=== PATIENT | female | born 1940 | race Caucasian/White ===

== ENCOUNTER 2016-05-16 22:38 | Inpatient (IN) | payer MEDICARE, BC ==
[~2016-05-16] VITALS: Ht 167.6 cm; Wt 84.8 kg
[~2016-05-16 22:38] MED LIST: ASPI-1100 PO; ATOR80TA PO; CARV3.122 PO; ESTR0.9T2 PO; EZET10TA PO; LEVO100C2 PO; LORA2TAB95 PO; METH10TA PO; PRAS10TA5 PO
[2016-05-16] MEDS ORDERED: IV SET PRIMARY 1 EA INFUS.SET MC ONE (22:51)
[2016-05-16] MEDS ORDERED: IV NS 0.9% 1,000 ML ONE (22:51)
[2016-05-16] MEDS ORDERED: IV NS 0.9% 1,000 ML BAG IV ONE (23:00)
[2016-05-16 23:25] LABS: BASOPHILS % (AUTO) 0.2 % (0.0-2.0); EOSINOPHILS # (AUTO) 0.2 /CMM (0.0-0.7); EOSINOPHILS % (AUTO) 3.4 % (0.0-6.0); HEMATOCRIT 43 % (33-45); HEMOGLOBIN 13.7 g/dL (11.5-14.8); LYMPHOCYTES # (AUTO) 0.3 /CMM (0.8-4.8); LYMPHOCYTES % (AUTO) 6.3 % (20.0-44.0); MEAN CORPUSCULAR HEMOGLOBIN 28 PG (26.0-33.0); MEAN CORPUSCULAR HGB CONC 32 g/dl (31.0-36.0); MEAN CORPUSCULAR VOLUME 86 fL (82-100); MONOCYTES # (AUTO) 0.4 /CMM (0.1-1.30); MONOCYTES % (AUTO) 6.8 % (2.0-12.0); NEUTROPHILS # (AUTO) 4.4 /CMM (1.8-8.9); NEUTROPHILS % (AUTO) 83.3 % (43.0-81.0); PLATELET COUNT (AUTO) 218 /CMM (150-450); RDW COEFFICIENT OF VARIATION 14.6 (11.5-15.0); RED BLOOD CELL COUNT(AUTO) 4.97 MIL/uL (4.0-5.2); WHITE BLOOD COUNT (AUTO) 5.3 K/uL (4.3-11.0)
[2016-05-16 23:46] LABS: APPEARANCE,URINE CLEAR (CLEAR); BILIRUBIN,URINE NEGATIVE (NEGATIVE); BLOOD, URINE TRACE-INTA Ery/uL (NEGATIVE); COLOR,URINE YELLOW (YELLOW); KETONES,URINE NEGATIVE (NEGATIVE); LEUKOCYTE ESTERASE ,URINE NEGATIVE (NEGATIVE); NITRITE, URINE NEGATIVE (NEGATIVE); PH,URINE 7.5 (5.0-8.0); PROTEIN,URINE NEGATIVE (NEGATIVE); UGLUCOSE NEGATIVE (NEGATIVE); UROBILINOGEN,URINE 0.2 EU/dL (0.2)
[2016-05-16 23:50] LABS: CALCIUM, SERUM 8.7 mg/dL (8.5-10.1); CARBON DIOXIDE 26 mmol/L (21-32); CHLORIDE 103 mmol/L (98-107); CREATININE 0.9 mg/dL (0.6-1.3); GLUCOSE 101 mg/dL (74-106); POTASSIUM 4.4 mmol/L (3.5-5.1); SODIUM SERUM 138 mmol/L (136-145); UREA NITROGEN, BLOOD 12 mg/dL (7-18)
[2016-05-16 23:54] LABS: CANNABINOID, URINE NEGATIVE (NEGATIVE); PHENCYCLIDINE SCREEN,URINE NEGATIVE (NEGATIVE)
[2016-05-16 23:54] LABS: ACETAMINOPHEN 0 ug/ml (10-30); ALANINE AMINOTRANSFERASE 18 U/L (12-78); ALBUMIN 3.1 g/dL (3.4-5.0); ALCOHOL, BLOOD < 3 mg/dL (0-0); ALKALINE PHOSPHATASE 96 U/L (46-116); ASPARTATE AMINOTRANSFERASE 16 U/L (15-37); BILIRUBIN,DIRECT 0.1 mg/dL (0.0-0.2); BILIRUBIN,TOTAL 0.2 mg/dL (0.2-1.0); SALICYLATE 2.3 mg/dL (2.8-20.0); TOTAL PROTEIN, SERUM 7.3 g/dL (6.4-8.2)
[2016-05-17] VITALS (7 sets, daily range): BP systolic 106–151; BP diastolic 53–77
[2016-05-17 00:10] LABS: ADD URINE CULTURE NO; BACTERIA,URINE None seen /HPF (None Seen); RBC,URINE 0-3 /HPF (0-2); SQUAMOUS EPITHELIAL CELL,UR Rare /HPF (None Seen); WBC,URINE 0-2 /HPF (0-3)
[2016-05-17 00:11] LABS: MUCUS,URINE Rare /LPF (None Seen)
--- NOTE | 2016-05-17 01:00 | NUR ---
RN NOTE; ADMITTED A 75Y/O F A, OX2. AT THI TIME BUT AT BASE LINE PT IS OX4. BREATHING EVENLY. NO SOB. NO DISTRESS. DENIED ANY PAIN OR DISCOMFORT AT THIS TIME. NO FACIAL DROOP, NO C/O HEADACHE. NO WEAKNESS . ABLE TO MOVE ALL 4 EXTREMITIES W/ NO LIMITATIONS. PUPILS EQUAL AND REACTIVE TO LIGHT . NO SLURRED SPEECH HOWEVER DELAYED IN RESPONSE. VS: WNL. NEEDS ATTENDED. BED LOW LOCKED. SRX2. CALL LIGHT WITHIN REACH. WILL CONT TO MONITOR AND WILL F/U W/ MD ORDERS.
[2016-05-17] MEDS ORDERED: ONDANSETRON HCL/PF 4 MG/2 ML VIAL IVP PRN (01:30)
[2016-05-17] MEDS ORDERED: HYDROCODONE/APAP 5/325MG 1 EACH TABLET PO PRN (01:30)
[2016-05-17] MEDS ORDERED: CARVEDILOL 3.125 MG TABLET PO SCH (01:30)
[2016-05-17] MEDS ORDERED: MAGNESIUM HYDROXIDE 30 ML UDC PO PRN (01:30)
[2016-05-17] MEDS ORDERED: ACETAMINOPHEN 325 MG TABLET PO PRN (01:30)
[2016-05-17] MEDS ORDERED: METHADONE HCL 10 MG TABLET PO SCH ×2 (01:30→09:00)
[2016-05-17] MEDS ORDERED: LORAZEPAM 1 MG TABLET PO PRN (01:30)
[2016-05-17] MEDS ORDERED: ASPIRIN EC 325 MG TABLET.DR PO SCH (01:30)
[2016-05-17] MEDS ORDERED: MAG HYDROX/AL HYDROX/SIMETH 30 ML UDC PO PRN (01:30)
[2016-05-17] MEDS ORDERED: Z GUARD REMEDY 2 OZ OINT TP PRN (01:30)
[2016-05-17] MEDS ORDERED: EZETIMIBE 10 MG TABLET PO SCH (01:30)
--- NOTE | 2016-05-17 01:48 | NUR ---
MED. RECON. PAGED RANDI SKELTON AND SPOKE TO HIM REGRADING UPDATED MED RECON. PER PT'S , PT IS NO LONGER TAKING ASA, ESTROGEN, EFFIENT AND ZETIA. SHE IS TAKING REPATHA INJ Q2WKS AND THE LAST TIME SHE HAD IT WAS YESTERDAY IN 'S OFFICE. SHE IS ALSO TAKING PLAVIX 75MG DAILY AND SHE TOOK THE LAST DOSE ON 05/16 IN THE MORNING AND PER IT'S NOT DUE UNTIL IM AM. RANDI SKELTON MADE AWARE OF UPDATED MED RECON W/ NEW ORDERS. ALL NOTED AND CARRIED OUT.
--- NOTE | 2016-05-17 06:27 | NUR ---
TEXTED DR. HERRERA FOR MRI APPROVAL.
--- NOTE | 2016-05-17 06:32 | NUR ---
DR. HERRERA TEXED BACK,HE WILL LET US KNOW
--- NOTE | 2016-05-17 06:51 | NUR ---
RN NOTE; PT IN BED AWAKE W/ FAMILY T THE BED SIDE. BREATHING EVENLY. NO SOB. NO DISTRESS. NO CHANGE IN NEURO STATUS NOTED. NO C/O H/A. NO FACIAL DROOP OR FACIAL ASYMMETRY. NO WEAKNESS. NEEDS ATTENDED. BED LOW LOCKED. SRX2. CALL LIGHT WITHIN REACH. WILL CONT TO MONITOR AND WILL ENDORSE TO AM SHIFT FOR SASCHA.
[2016-05-17 07:02] LABS: BASOPHILS % (AUTO) 0.5 % (0.0-2.0); EOSINOPHILS # (AUTO) 0.1 /CMM (0.0-0.7); EOSINOPHILS % (AUTO) 1.6 % (0.0-6.0); HEMATOCRIT 40 % (33-45); HEMOGLOBIN 13.2 g/dL (11.5-14.8); LYMPHOCYTES # (AUTO) 0.6 /CMM (0.8-4.8); LYMPHOCYTES % (AUTO) 17.8 % (20.0-44.0); MEAN CORPUSCULAR HEMOGLOBIN 28 PG (26.0-33.0); MEAN CORPUSCULAR HGB CONC 33 g/dl (31.0-36.0); MEAN CORPUSCULAR VOLUME 86 fL (82-100); MONOCYTES # (AUTO) 0.3 /CMM (0.1-1.30); MONOCYTES % (AUTO) 8.5 % (2.0-12.0); NEUTROPHILS # (AUTO) 2.5 /CMM (1.8-8.9); NEUTROPHILS % (AUTO) 71.6 % (43.0-81.0); PLATELET COUNT (AUTO) 220 /CMM (150-450); RDW COEFFICIENT OF VARIATION 14.5 (11.5-15.0); RED BLOOD CELL COUNT(AUTO) 4.68 MIL/uL (4.0-5.2); WHITE BLOOD COUNT (AUTO) 3.5 K/uL (4.3-11.0)
[2016-05-17] MEDS ORDERED: EVOL140S SQ (07:21)
[2016-05-17] MEDS ORDERED: CLOP75TA2 PO (07:22)
[2016-05-17 07:28] LABS: BILIRUBIN,TOTAL 0.2 mg/dL (0.2-1.0); CALCIUM, SERUM 8.7 mg/dL (8.5-10.1); CREATININE 0.8 mg/dL (0.6-1.3); MAGNESIUM 1.9 mg/dL (1.8-2.4); PHOSPHORUS 4.7 mg/dL (2.5-4.9); POTASSIUM 3.7 mmol/L (3.5-5.1); TOTAL PROTEIN, SERUM 6.9 g/dL (6.4-8.2)
[2016-05-17 07:36] LABS: THYROID STIMULATING HORMONE 0.032 uIU/mL (0.358-3.74)
--- NOTE | 2016-05-17 08:00 | NUR ---
RN NOTES PATIENT IN BED RESTING, AT BEDSIDE. NO SOB OR ACUTE DISTRESS NOTED. BED IN LOW LOCKED POSITION. CALL LIGHT WITHIN REACH. WILL CONTINUE TO MONITOR.
[2016-05-17] MEDS: CARVEDILOL 3.125 MG TABLET PO SCH (08:43)
[2016-05-17] MEDS: CLOPIDOGREL BISULFATE 75 MG TABLET PO SCH (08:43)
[2016-05-17] MEDS ORDERED: ESTROGENS,CONJUGATED (0.3 mg) 0.3 MG TABLET PO SCH ×2 (09:00)
--- NOTE | 2016-05-17 09:00 | NUR ---
RN NOTES PATIENT STATES SHE TAKES METHADONE 30MG IN THE AM, NOTIFIED DR. MCNEIL STATES SHE HAS TO SEE THE PRESCRIPTION BOTTLE TO CONTINUE 30MG FOR NOW 10 MG ORDERED.
--- NOTE | 2016-05-17 09:30 | NUR ---
RN NOTES CONFIRMED WITH PATIENTS METHADONE DOES ORDERED 30MG METHADONE EVERY MORNING.
[2016-05-17] MEDS: ATORVASTATIN 40 MG TABLET PO SCH (09:56)
[2016-05-17] MEDS ORDERED: METHADONE HCL 10 MG TABLET PO ONE (11:30)
[2016-05-17] MEDS ORDERED: PRASUGREL HCL 5 MG TABLET PO SCH (13:09)
--- NOTE | 2016-05-17 18:47 | NUR ---
MS RN NOTES PATIENT IN BED RESTING NO SOB OR ACUTE DISTRESS NOTED. EEG TEST COMPLETED. IV INTACT PATENT. ALL DUE MEDICATIONS GIVEN. ALL NEEDS MET. WILL ENDORSE TO PM SHIFT SASCHA.
--- NOTE | 2016-05-17 19:30 | NUR ---
MS RN OPENING NOTES: PATIENT IN BED, AOX4, ON ROOM AIR, BREATHING EVEN AND UNLABORED. AMBULATORY WITH STEADY GAIT, GOES TO BATHROOM WITH JUST STANDBY ASSISTANCE. IN NO APPARENT DISTRESS , ABLE TO MAKE NEEDS KNOWN. FAMILY AT BEDSIDE. DENIES PAIN AT THIS TIME. PATIENT HAS PIV ACCESS OVER R WRIST G 20 INTACT AND PATENT TO FLUSH. PROVIDED FOR COMFORT AND SAFETY. WILL CONT TO MONITOR.
[2016-05-17] MEDS ORDERED: ZOLPIDEM TARTRATE 5 MG TABLET PO ONE (23:30)
--- NOTE | 2016-05-17 23:30 | NUR ---
RN NOTES: PATIENT IS REQUESTING FOR AMBIEN, WHICH IS WHAT SHE USUALLY TAKES TO HELP HER SLEEP. DWAIN OROZCO, [employer]AND CONTROL WORKER MEDICAL RADIATION THERAPIST, MADE AWARE. PER SAND CONTROL WORKER, GIVE ONLY AMBIEN 5 MG PO ONCE ONLY (NOW). NOTED AND CARRIED OUT. WILL CONT TO MONITOR.
[2016-05-17] MEDS ORDERED: ZOLPIDEM TARTRATE 5 MG TABLET ONE (23:48)
--- NOTE | 2016-05-18 06:40 | NUR ---
MS RN CLOSING NOTES: PATIENT IN BED, AOX4, ON ROOM AIR, BREATHING EVEN AND UNLABORED. IN NO APPARENT DISTRESS. PATIENT WAS ABLE TO SLEEP THROUGH THE NIGHT. DENIES PAIN AT THIS TIME. PIV ACCESS OVER R WRIST G 20 INTACT AND PATENT TO FLUSH. DUE MEDS GIVEN. NEURO CHECKS DONE. PROVIDED FOR COMFORT AND SAFETY. WILL ENDORSE TO AM RN FOR SASCHA.
[2016-05-18] MEDS ORDERED: LEVOTHYROXINE SODIUM 100 MCG TABLET PO SCH (07:30)
[2016-05-18 08:00] VITALS: BP 103/66
--- NOTE | 2016-05-18 08:00 | NUR ---
MS RN NOTES PATIENT IN BED RESTING NO SOB OR ACUTE DISTRESS NOTED. CALL LIGHT WITHIN REACH. BED IN LOW LOCKED POSITION. WILL CONTINUE TO MONITOR.
[2016-05-18] MEDS: CLOPIDOGREL BISULFATE 75 MG TABLET PO SCH (08:22)
[2016-05-18] MEDS: ATORVASTATIN 40 MG TABLET PO SCH (08:23)
[2016-05-18] MEDS: CARVEDILOL 3.125 MG TABLET PO SCH (08:23)
[2016-05-18] MEDS ORDERED: METHADONE HCL 10 MG TABLET PO SCH (09:00)
--- NOTE | 2016-05-18 14:00 | NUR ---
MS RN NOTES PATIENT SEEN AND EVALUATED BY DR. SHEPPARD, CLEARED FOR DISCHARGE.
--- NOTE | 2016-05-18 15:15 | NUR ---
MS RN NOTES PATIENT DISCHARGED HOME IN STABLE CONDITION. DISCHARGE INSTRUCTIONS PROVIDED TO PATIENT AND FAMILY VERBALIZED UNDERSTANDING. ALL DUE MEDICATIONS GIVEN ALL NEEDS MET. BELONGINGS ACCOUNTED FOR, BELONGING LIST SIGNED. MD AWARE OF ALL ABNORMAL LABS. IV REMOVED WITH MINIMAL BLEEDING. ID BAND REMOVED. DISCHARGE PROTOCOL FOLLOWED. PATIENT ESCORTED BY DATA ENTRY ANALYST TO CAR WITH .
[2016-05-18 15:30] VITALS: BP 109/66
== END 2016-05-18 15:30 | disposition home or self-care (01) | DRG 101 ==
LOC: ER 22:40 → TELE 05-17 00:43 → MED 05-17 08:10
PROVIDERS: ADMIT Contractor; ATTEND Student in an Organized Health Care Education/Training Program
DX: R56.9 Unspecified convulsions (principal); F11.20 Opioid dependence, uncomplicated; E11.9 Type 2 diabetes mellitus without complications; Z86.73 Personal history of transient ischemic attack (TIA), and cerebral infarction without residual deficits; I11.9 Hypertensive heart disease without heart failure; E78.5 Hyperlipidemia, unspecified; E03.9 Hypothyroidism, unspecified; Z79.82 Long term (current) use of aspirin; F32.9 Major depressive disorder, single episode, unspecified; G89.29 Other chronic pain; I25.10 Atherosclerotic heart disease of native coronary artery without angina pectoris; Z87.891 Personal history of nicotine dependence; Z98.61 Coronary angioplasty status
CPT/HCPCS: 36415; 70450-TC; 70553-TC; 71010-TC; 80048-TC; 80053-TC; 80061-TC; 80076-TC; 80305; 81000-TC; 82962-TC; 83735-TC; 84100-TC; 84443-TC; 85025-TC; 87081-TC; 95819-TC; 97001-TC; 97003-TC; A4606; G0480; G6039-TC; J7030; Z7610